=== PATIENT | male | born 1960 | race Caucasian/White ===

== ENCOUNTER 2021-01-05 10:08 | Emergency (ER) | payer BC ==
[2021-01-05] MEDS ORDERED: Boostrix 0.5 ML (Tdap) VIAL ONE (10:20)
== END 2021-01-05 10:36 | disposition home or self-care (01) ==
LOC: BURERS 10:08
DX: S61.002A Unspecified open wound of left thumb without damage to nail, initial encounter (principal); I10 Essential (primary) hypertension; Z23 Encounter for immunization; W26.8XXA Contact with other sharp object(s), not elsewhere classified, initial encounter
CPT/HCPCS: 90471; 90715